=== PATIENT | male | born 1950 | race Caucasian/White ===

== ENCOUNTER 2016-09-23 15:53 | Observation (INO) | payer MEDICARE, OTHER ==
[~2016-09-23] VITALS: Ht 175.3 cm; Wt 94.6 kg
--- NOTE | ~2016-09-23 | HP ---
PATIENT'S NAME: IRA BHATT [facility] AGE: 66 Y [address] ROOM: G6312 [place], [place] [address] LOCATION: GPCU ADMIT DATE: 09/23/2016 History & Physical DISCHARGE DATE: FAMILY PHYSICIAN: PHYSICIAN, UNKNOWN ATTENDING PHYSICIAN: Arelis Mendoza DATE OF SERVICE: 09/23/2016 HISTORY OF PRESENT ILLNESS: Mr. Bhatt is a 66-year-old male patient who has a prior history of stent placement 19 years back in 1996. At that time, he was having chest pain and a stress test was abnormal, and he ended up with a stent. Since then, he has been doing well. Last week, he was traveling and in [place], [place], where he was walking quite a bit and started to notice some chest pains. Today, he was outside painting when the chest pain started along with some lightheadedness, located over the lower sternum. He was somewhat short of breath and sweaty. This reoccurred several times and last a total of 2 hours. He came to the emergency room in [place], from where he was sent by ambulance to our emergency room in [facility] where he was initially evaluated. He is currently pain free. His initial EKG and enzymes were negative for acute ST- segment elevation WI. His magnesium is 1.5. The patient has been fairly active up until now. He usually rides a bike for about 30 minutes before his travel to [place], [place]. In [place], [place], he walked a total of 10 miles in a day and did not have any great deal of trouble. For the last 7 to 10 days, he has not been exercising much. He is in functional class II with no paroxysmal nocturnal dyspnea or orthopnea. He did become lightheaded as mentioned earlier. He denies dizziness, syncope, presyncope, palpitations, or ankle swelling. The patient has history of hypertension. He quit smoking 40 years ago. There is family history of premature coronary artery disease in his father. He denies diabetes. He has no history of WI or angina or nitroglycerin use. He denies rheumatic fever, heart murmur, heart failure, dilated or enlarged heart, or any diagnosed cardiac arrhythmias. MEDICATIONS: 1. [place]-3 fatty acid 3 g 1 b.i.d. 2. Atorvastatin 80 mg a day. 3. Vitamin D3, 2000 units a day. 4. Tamsulosin 0.4 mg at bedtime. 5. Atenolol 25 mg a day. PATIENT'S NAME: IRA BHATT [facility] AGE: 66 Y [address] ROOM: [place] [address] LOCATION: GPCU ADMIT DATE: 09/23/2016 History & Physical DISCHARGE DATE: FAMILY PHYSICIAN: PHYSICIAN, UNKNOWN ATTENDING PHYSICIAN: Arelis Mendoza 6. Sodium bicarbonate 650 mg b.i.d. 7. Hydrochlorothiazide 25 mg every morning. 8. Allopurinol 300 mg a day. 9. Lisinopril 10 mg at bedtime. 10. Viagra 50 mg as directed. Tylenol PM p.r.n. ALLERGIES: ASPIRIN AND NAPROXEN. PAST MEDICAL HISTORY: 1. History of chronic renal disease. 2. Right shoulder surgery. 3. Cyst removed from ankle. 4. Obstructive sleep apnea. 5. 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 6. DJD. 7. Gout. SOCIAL HISTORY: The patient denies abusing alcohol. His appetite and weight are stable. Sleep is fair. FAMILY HISTORY: Positive for premature coronary artery disease. REVIEW OF SYSTEMS: Positive for, 1. Corrective lenses. 2. Dry eyes. 3. Pain in the upper epigastrium, which feels like a hunger pain. 4. History of kidney disease and DJD. PHYSICAL EXAMINATION: VITAL SIGNS: His blood pressure is 103/70, heart rate is in the 70s and regular, respirations 18, afebrile. HEENT: Normal. NECK: Supple with no JVD, thyromegaly, lymphadenopathy, or carotid bruit. PMI is not well located. HEART: First and second heart sounds are regular. There are no added sounds or murmurs. CHEST: Clear to auscultation. ABDOMEN: Soft, obese. There is mild tenderness in the epigastrium. EXTREMITIES: Reveal no edema. CENTRAL NERVOUS SYSTEM: Intact. PATIENT'S NAME: IRA BHATT [facility] AGE: 66 Y [address] ROOM: [place] [address] LOCATION: GPCU ADMIT DATE: 09/23/2016 History & Physical DISCHARGE DATE: FAMILY PHYSICIAN: PHYSICIAN, UNKNOWN ATTENDING PHYSICIAN: Arelis Mendoza ASSESSMENT: A 66-year-old male patient with prolonged chest pain. He also has renal insufficiency with a creatinine of 3.3. RECOMMENDATIONS: We will rule him out for WI. If he rules in, he will need a cath. In that if he rules out, he probably should be stressed. In the meantime, we will also get an echocardiogram as well. He had a stress test 6 months back in [facility], which we will try to get hold of as well. MD MAC TREVINO/sam /[id number]: [id number] T: [id number] HISTORY & PHYSICAL
--- NOTE | ~2016-09-23 | ECHO ---
Stress Echocardiography Report Demographics Patient Name IRA DOUGLASS Date of Study 09/24/2016 Patient Number [id number] Visit Number [id number] Date of 1950 Room Number G6312 Gender Male Number Age 66 year(s) Referring Kelly Infante Sweeper Brush Maker Machine Physician Physician Interpreting Kelly Infante Qa Architect Physician MD Supervising Ordering MD/MLP Physician Nurse Stress Bench Grinder Conclusions Summary Duration: 9 mins. METs: 10.10. Acheived: 115% MPHR. DP: 29 K No chest pain. Reason for termination: Fatigue and SOB. EK mm ST depression in L2,V5 and V6. No arrythmias. DTS: -1 (moderate risk) ECHO: No inducible ischemia. Procedure Type of Study Stress procedure:Treadmill Stress Echo w/o Contrast. Procedure Date Date: 09/24/2016 Start: 01:30 AM Risk Factors - The patient's risk factor(s) include: renal failure , treated dyslipidemia and treated arterial hypertension. - The patient has melanoma. Stress Predicted HR: 153 bpm Signature dtt: Arelis Mendoza dtd: 09/24/16 0130 Physician Self Edit
--- NOTE | ~2016-09-23 | ER ---
PATIENT'S NAME: IRA DOUGLASS [facility] AGE: 66 Y [address] ROOM: [place] [address] LOCATION: GPCU ADMIT DATE: 09/23/2016 ER/Outpatient Report DISCHARGE DATE: FAMILY PHYSICIAN: PHYSICIAN, UNKNOWN ATTENDING PHYSICIAN: Arelis Mendoza TIME OF ARRIVAL: 1553. TIME SEEN: 1553. ID: A 66-year-old male. CHIEF COMPLAINT: Chest pain. HISTORY OF PRESENT ILLNESS: The patient is a 66-year-old male brought in from [facility] for chest pain. The patient experienced chest pressure at 10 a.m. 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 He admits to having had an episode of chest pain last week pretty severe while walking. His pain is almost completely relieved at rest. It is down to 1/10 on the pain scale. When this happened today, he did have associated shortness of breath and diaphoresis. He has a history of previous coronary artery disease, status post OR and stent 20 years ago. He also has hypertension and hyperlipidemia. ALLERGIES: ASPIRIN CAUSES ANAPHYLAXIS. CURRENT MEDICATIONS: Allopurinol 300 mg daily, atenolol 25 mg daily, atorvastatin 80 mg one-half tablet daily, cholecalciferol 2000 international units daily, cyclobenzaprine 10 mg t.i.d., hydrochlorothiazide 25 mg daily, lisinopril 10 mg daily, omega-3 three times daily, and Viagra p.r.n. He denies having had any Viagra for the last week. Sodium bicarb 325 mg b.i.d. and tamsulosin 0.4 mg daily. MEDICAL PROBLEMS: Gout; coronary artery disease, status post OR 20 years ago; hypertension; chronic kidney disease; and hyperlipidemia. PRIOR SURGERIES: Knee replacement and ankle surgery. PATIENT'S NAME: IRA DOUGLASS [facility] AGE: 66 Y [address] ROOM: [place] [address] LOCATION: GPCU ADMIT DATE: 09/23/2016 ER/Outpatient Report DISCHARGE DATE: FAMILY PHYSICIAN: PHYSICIAN, UNKNOWN ATTENDING PHYSICIAN: Arelis Mendoza SOCIAL HISTORY: The patient lives in [place]. Tobacco use, denies. Alcohol use, denies. Drug use, denies. He is a pan. He is . FAMILY HISTORY: Positive for coronary artery disease. REVIEW OF SYSTEMS: All systems reviewed and negative other than what is noted in the HPI. PHYSICAL EXAMINATION: VITAL SIGNS: Height 5 feet 10 inches and weight 98.3 kg. Blood pressure 136/77, pulse 80, respirations 20, temperature 97.6, and saturations 99% on 2 L per nasal cannula. GENERAL: This is a 66-year-old male, in no acute distress. HEENT: Head normocephalic, atraumatic. Ears, TMs translucent in both ears. Nose, mucosa pink, no lesions. Mouth, no lesions. Pharynx benign. NECK: Supple. No lymphadenopathy. LUNGS: Clear to auscultation. Breath sounds are equal. No rhonchi, wheezes, or rales. HEART: Regular rate and rhythm. No murmur, rub, or gallop. ABDOMEN: Bowel sounds present. Protuberant, soft, nondistended, nontender. SKIN: [place], warm, and dry. No lesions or rashes noted. NEUROLOGIC: The patient is alert and oriented x4. Cranial nerves 2 through 12 grossly intact. Motor strength 5/5 throughout. Sensation is intact to light touch. No significant lower extremity edema. No calf tenderness. DIAGNOSTIC DATA: Chest x-ray, 1 view, no acute findings. Pending Radiology over-read. Sodium 142, potassium 4.5, chloride 110, CO2 of 23, BUN 65, creatinine elevated at 3.3, and blood sugar 95. Liver enzymes normal. GFR 19. Magnesium 1.5. CPK 193. CK-MB 2.8. Troponin I less than 0.040. ProBNP 114. D-dimer elevated at 1.39. INR 1.07. Hemoglobin 12.4, hematocrit 37.1, platelets 161, and white count 8.3 with normal differential. EKG done at [facility], normal sinus rhythm, hyperacute T-waves. EKG done pre-hospital, normal sinus rhythm at 86 beats per minute, hyperacute T-waves anteriorly. No acute ST elevation or depression. EKG done here on arrival to the emergency room at 1554, normal sinus rhythm at 71 beats per minute. He does have hyperacute T-waves anteriorly with slight ST elevation in V1 and V2. This is change from May 21, 2015. Repeat EKG at 1618, normal sinus rhythm at 73 beats per minute. Continues to have hyperacute T-waves anteriorly. EMERGENCY ROOM COURSE: 1. I did discuss this with Dr. Mendoza in Cardiology. The patient was started on a nitroglycerin drip per protocol. His pain completely PATIENT'S NAME: IRA DOUGLASS [facility] AGE: 66 Y [address] ROOM: [place] [address] [facility] ADMIT DATE: 09/23/2016 ER/Outpatient Report DISCHARGE DATE: FAMILY PHYSICIAN: PHYSICIAN, UNKNOWN ATTENDING PHYSICIAN: Arelis Mendoza relieved with the hyperacute T-waves, though I did discuss this with Dr. Mendoza immediately. Since his pain has improved, at this point we will await his lab work, which had negative cardiac enzymes and elevated D-dimer. The patient was started on heparin per acute coronary syndrome protocol. He has no contraindications. V/Q scan has been ordered, and Dr. Mendoza will admit the patient to PCU telemetry. 2. Chronic kidney disease with acute kidney injury. Creatinine is 3.3, which sounds like is higher than his normal baseline. 3. Hypertension. 4. History of known coronary artery disease. 5. History of gout. 6. Hyperlipidemia. PLAN: For admission per Dr. Mendoza and the patient remained stable throughout his stay here in the emergency room. MD MAC HACKETT/sam /[id number] d: 09/24/16 0058 t: 09/26/16 07, OUTPATIENT REPORT
[~2016-09-23 15:53] MED LIST: FISH OIL 1,0001 EACH PO; FLOMAX0.4 MG PO; HYDRODIURIL25 MG PO; LIPITOR80 MG PO; PERCOCET 5-3251 EACH PO; PRINIVIL OR ZES10 MG PO; SODIUM BICARBO650 MG PO; TENORMIN25 MG PO; VITAMIN D-32000 UNI1 PO; XARELTO10 MG PO; ZYLOPRIM300 MG PO
[2016-09-23 16:16] LABS: BASOPHIL # 0.1 K/uL (0.0-0.2); BASOPHIL % 0.6 %; EOSINOPHIL # 0.2 K/uL (0.0-0.5); EOSINOPHIL % 2.4 %; HEMATOCRIT 37.1 % (37.0-53.0); HEMOGLOBIN 12.4 g/dL (11.0-16.0); IMMATURE GRANULOCYTE % 0.4 %; LYMPHOCYTE # 1.6 K/uL (0.8-4.0); LYMPHOCYTE % 19.1 %; MCH 31.4 pg (27.0-34.0); MCHC 33.4 gm/dL (32.0-36.5); MCV 93.9 fl (83.0-98.0); MONOCYTE # 0.8 K/uL (0.0-1.0); MONOCYTE % 9.1 %; MPV 9.5 fl (9.4-12.4); NEUTROPHIL # (ANC) 5.7 K/uL (1.4-9.0); NEUTROPHIL % 68.4 %; NRBC % 0 /100WBC (0-0.00); PLATELET COUNT 161 K/uL (150-450); RBC 3.95 M/uL (3.50-5.50); WBC 8.3 K/uL (4.0-11.0)
[2016-09-23 16:25] LABS: INR - (THERAPEUTIC) 1.07 (0.92-1.07); PROTIME 11.2 SECONDS (9.8-11.4); PTT 27 SECONDS (25-32)
[2016-09-23 16:35] LABS: ALBUMIN 3.4 gm/dL (3.5-5.0); ALK PHOS 72 IU/L (33-138); ALT 28 IU/L (12-78); ANION GAP 13.5 (10.0-19.0); AST 30 IU/L (10-40); CALCIUM 9.5 mg/dL (8.5-10.5); CHLORIDE 110 mMol/L (96-110); CO2 23 mMol/L (22-32); CPK 193 IU/L (35-332); CREATININE 3.3 mg/dL (0.6-1.3); ESTIMATED GFR (MDRD EQUATION) 19; MAGNESIUM 1.5 mg/dL (1.8-2.6); POTASSIUM 4.5 mMol/L (3.7-5.1); SODIUM 142 mMol/L (135-145); TOTAL PROTEIN 7.2 g/dL (6.0-8.4)
[2016-09-23 16:39] LABS: BLOOD UREA NITROGEN 65 mg/dL (6-24)
[2016-09-23] MEDS ORDERED: VIAGRA50 MG PO (19:29)
[2016-09-23] MEDS ORDERED: TYLENOL PM EX-1 EACH PO (19:31)
--- NOTE | 2016-09-23 19:41 | NUR ---
PT is 66 y/o male admit for chest pain for . Pt alert and oriented x3. Resides at home with his . Allergies to ASA,naproxen. REd and yellow bracelets on. Hx stent,hypercholest,htn,gout,chronic renal disease, urgency/frequency. Pt states he started having chest pain about a week ago while traveling and he had done some extensive walking. 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 Pt rates chest pain at a 1/10 now. Heparin and ntg running.
--- NOTE | 2016-09-24 04:54 | NUR ---
Significant event: A/O x 3. Nitri drip off shortly after arriving to the floor as patient was not having any chest pain and has continued to be chest pain free throughout the night. Heparin drip at 1100 units with next ptthp due at 0530. cardiac work up has been negative so far. Plan was to do a stress test this am if everything was coming back negative however since he had the V Q scan done last night it is too soon to complete a stress test at this time per Don from [facility] and will need to wait untill sat. All VSS uses urinal at the bedside.
--- NOTE | 2016-09-24 10:58 | NUR ---
Introduced self and role of care management to patient. He lives with his in [place] He states that he is able to do all his own ADL's. He states that his is available to assist as needed. He plans on returning home on discharge. He denies any needs at this time. Will continue to follow.
--- NOTE | 2016-09-24 16:20 | NUR ---
Significant Event: A/OX3, VSS ON ROOM AIR. PT. IS UP AD EBER IN ROOM. NO COMPLAINTS OF PAIN/CHEST PAIN TODAY. STRESS ECHO TEST WAS NEGATIVE. PT. WILL D/C TO HOME ONCE DR. Gunn COMES UP TO FLOOR. SLIV TO R)FA. SHOWERED TODAY. D/C MEDS TO CHART. Follow up: D/C TO HOME.
[2016-09-24] MEDS ORDERED: PLAVIX75 MG PO (18:59)
[2016-09-24] MEDS ORDERED: PROTONIX40 MG PO (19:00)
[2016-09-24] MEDS ORDERED: NITROSTAT0.4 MG SL (19:03)
== END 2016-09-24 19:30 | disposition disaster alternative care site (69) ==
LOC: GMED 15:53 → GPCU 17:39
PROVIDERS: Family Medicine; ADMIT Internal Medicine Interventional Cardiology
DX: R07.9 Chest pain, unspecified (principal); I25.10 Atherosclerotic heart disease of native coronary artery without angina pectoris; G47.33 Obstructive sleep apnea (adult) (pediatric); M10.9 Gout, unspecified; N28.9 Disorder of kidney and ureter, unspecified; Z88.6 Allergy status to analgesic agent; Z88.8 Allergy status to other drugs, medicaments and biological substances; Z95.5 Presence of coronary angioplasty implant and graft; Z98.890 Other specified postprocedural states
CPT/HCPCS: A9539; A9540; G0378; J1644; J3475; J7050